=== PATIENT | male | born 1995 ===

== ENCOUNTER 2022-04-27 11:28 | Inpatient (IN) | payer OTHER ==
[~2022-04-27] VITALS: Ht 170.2 cm; Wt 58.3 kg
[2022-04-27 12:12] LABS: COVID AG,FIA SOURCE NASAL SWAB
[2022-04-27] MEDS ORDERED: RISP3TAB35 PO (12:58)
[2022-04-27] MEDS ORDERED: HALOPERIDOL LACTATE 5 MG/ML VIAL IM ONE (13:00)
[2022-04-27] MEDS ORDERED: DiphenhydrAMINE HCL 50 MG/ML VIAL IM ONE (13:00)
[2022-04-27] MEDS ORDERED: LORazepam 2 MG/ML VIAL IM ONE (13:00)
[2022-04-27 14:47] VITALS: BP 110/51
[2022-04-27 20:07] VITALS: BP 96/74
[2022-04-28 04:26] VITALS: BP 100/53
[2022-04-28 08:02] VITALS: BP 100/54
[2022-04-28 09:31] LABS: AMPHET/METH SCREEN,URINE NEGATIVE (NEGATIVE); BARBITURATE SCREEN, URINE NEGATIVE (NEGATIVE); BENZODIAZEPINES SCREEN,URINE NEGATIVE (NEGATIVE); CANNABINOID SCREEN,URINE NEGATIVE (NEGATIVE); COCAINE SCREEN,URINE NEGATIVE (NEGATIVE); METHADONE SCREEN, URINE NEGATIVE (NEGATIVE); OPIATE SCREEN,URINE NEGATIVE (NEGATIVE); PHENCYCLIDINE SCREEN,URINE NEGATIVE (NEGATIVE)
[2022-04-28 16:12] VITALS: BP 105/56
[2022-04-28 19:48] VITALS: BP 101/64
[2022-04-28] MEDS ORDERED: HydrOXYzine HCL 10 MG TABLET PO ONE (22:00)
[2022-04-29] MEDS ORDERED: ZOLPIDEM TARTRATE 5 MG TABLET PO PRN (00:15)
[2022-04-29] MEDS ORDERED: ACETAMINOPHEN 325 MG TABLET PO PRN (00:15)
[2022-04-29] MEDS ORDERED: BISACODYL 10 MG RECTAL RECTAL SUPPOSITORY PR PRN (00:15)
[2022-04-29] MEDS ORDERED: IPRATROPIUM BROMIDE 0.5 MG/2.5 ML NEB SOLUTION NEB PRN (00:15)
[2022-04-29] MEDS ORDERED: ALBUTEROL SULFATE 2.5 MG/0.5 ML NEB SOLUTION NEB PRN (00:15)
[2022-04-29] MEDS ORDERED: HydrOXYzine HCL 50 MG TABLET PO PRN (00:15)
[2022-04-29] MEDS ORDERED: IBUPROFEN 600 MG TABLET PO PRN (00:15)
[2022-04-29] MEDS ORDERED: ONDANSETRON HCL 4 MG/2 ML VIAL IVP PRN (00:15)
[2022-04-29] MEDS ORDERED: MAGNESIUM HYDROXIDE SUSPENSION 30 ML UDCUP PO PRN (00:15)
[2022-04-29 07:44] VITALS: BP 104/70
[2022-04-29] MEDS: PANTOPRAZOLE SODIUM 40 MG DR TABLET PO SCH (08:03)
[2022-04-29] MEDS: HEPARIN SODIUM,PORCINE 5,000 UNITS/ML VIAL SQ SCH ×3 (08:04→23:19)
[2022-04-29 16:02] VITALS: BP 112/61
[2022-04-30] MEDS: PANTOPRAZOLE SODIUM 40 MG DR TABLET PO SCH ×2 (07:46→08:10)
[2022-04-30] MEDS: HEPARIN SODIUM,PORCINE 5,000 UNITS/ML VIAL SQ SCH ×2 (07:46→08:00)
== END 2022-04-30 15:51 | DRG 885 ==
LOC: EMS 11:28 → 6S 13:56 → UNDODISIN 04-30 12:00
PROVIDERS: ADMIT Hospitalist; ATTEND Hospitalist
DX: F29 Unspecified psychosis not due to a substance or known physiological condition (principal); F20.9 Schizophrenia, unspecified; Z20.822 Contact with and (suspected) exposure to COVID-19; R45.88 Nonsuicidal self-harm
CPT/HCPCS: 99285; J1200; J1630; J1644; J2060